=== PATIENT | female | born 1935 | race Caucasian/White ===

== ENCOUNTER 2019-04-03 07:43 | Emergency (ER) | payer MEDICARE, OTHER ==
[~2019-04-03] VITALS: Ht 160 cm; Wt 53.5 kg
[~2019-04-03 07:43] MED LIST: BECL40OI INH; CALGLU500 PO; CLOT10 MT; Calan Sr180 MG PO; ERGO400 PO; LEVFLO500 PO; LEVOFLOXAC750 MG/150 IV; METO5A PO; MULVITMINF PO; PRED1 PO; THYR60 PO; TRIAOI IH; VERA180ER PO; VERA80 PO
[2019-04-03] MEDS ORDERED: PRED1 PO (07:54)
[2019-04-03 09:03] LABS: Source, Urine Clean Catch
[2019-04-03 09:12] LABS: Bilirubin, Urine Neg (Neg); Blood, Urine 2+ (Neg); Glucose Qualitative, Urine Neg (Neg); Ketones, Urine Neg (Neg); Leukocyte Esterase, Urine 1+ (Neg); Nitrite, Urine Neg (Neg); Protein, Urine Neg (Neg); Urobilinogen, Urine NORM (Normal)
[2019-04-03 09:18] LABS: Appearance, Urine Clear (Clear); Color, Urine Yellow (P-Yellow)
[2019-04-03 09:20] LABS: Bacteria Rare /hpf; Red Blood Cells, Urine 0-2 /hpf (0-2); Squamous Epithelial Cells Rare /hpf (Few); White Blood Cells, Urine 0-2 /hpf (0-5)
[2019-04-03 09:31] LABS: BASOPHILS ABSOLUTE AUTO 0.07 K/mm3 (0.00-0.23); BASOPHILS PERCENT AUTO 1 % (0-2); EOSINOPHILS ABSOLUTE AUTO 0.06 K/mm3 (0.00-0.68); EOSINOPHILS PERCENT AUTO 1 % (0-6); Hematocrit 48.7 % (33.0-51.0); Hemoglobin 15.9 g/dL (11.5-16.0); IMMATURE GRAN ABSOLUTE AUTO 0.05 K/mm3 (0.00-0.10); IMMATURE GRAN PERCENT AUTO 1 % (0-1); LYMPHOCYTES PERCENT AUTO 7 % (21-46); MONOCYTES ABSOLUTE AUTO 0.51 K/mm3 (0.16-1.47); MONOCYTES PERCENT AUTO 5 % (4-13); Mean Corpuscular HGB 30.2 pg (26.0-34.0); Mean Corpuscular HGB Conc 32.6 g/dL (31.5-36.5); Mean Corpuscular Volume 92 fL (80-100); Mean Platelet Volume 10.7 fL (9.1-12.4); NEUTROPHILS ABSOLUTE AUTO 8.01 K/mm3 (1.96-9.15); NEUTROPHILS PERCENT AUTO 85 % (41-73); Platelet Count 244 K/mm3 (150-400); RDW Coefficient Variation 12.2 % (11.7-14.2); RDW Standard Deviation 41.5 fL (35.1-46.3); Red Blood Cell Count 5.27 M/mm3 (3.80-5.20)
[2019-04-03 09:50] LABS: Alanine Aminotransfer (ALT/SGP 23 U/L (12-78); Albumin, Blood 4.3 g/dL (3.4-5.0); Albumin/Globulin Ratio 1.3 (0.8-1.8); Alk Phos 82 U/L (50-136); Anion Gap 5 mmol/L (6-16); Aspartate Aminotrans (AST/SGOT 18 U/L (12-37); Bilirubin, Total 0.8 mg/dL (0.1-1.0); Blood Urea Nitrogen 12 mg/dL (8-24); Bun/Creatinine Ratio 17.2 (12.0-20.0); CO2, Blood 31 mmol/L (21-32); Calcium, Blood 9.4 mg/dL (8.5-10.1); Chloride, Blood 106 mmol/L (98-108); Globulin, Blood 3.4 g/dL (2.2-4.0); Glomerular Filtration Rate >60 (60-); Glucose, Blood 100 mg/dL (70-99); Potassium, Blood 3.9 mmol/L (3.5-5.5); Sodium, Blood 142 mmol/L (136-145); Total Protein, Blood 7.7 g/dL (6.4-8.2)
[2019-04-04] MEDS ORDERED: FLUC150A PO (08:05)
== END 2019-04-03 11:05 | disposition home or self-care (01) ==
LOC: ER 07:43
PROVIDERS: Physician Assistant
DX: K57.30 Diverticulosis of large intestine without perforation or abscess without bleeding (principal); M46.1 Sacroiliitis, not elsewhere classified; R59.0 Localized enlarged lymph nodes; E03.9 Hypothyroidism, unspecified; J45.909 Unspecified asthma, uncomplicated; I47.1 Supraventricular tachycardia
CPT/HCPCS: 36415; 51701; 74176; 80053; 81001; 83690; 85025; 87086; 99284-25

== ENCOUNTER 2019-04-04 07:20 | Emergency (ER) | payer MEDICARE, OTHER ==
[~2019-04-04] VITALS: Ht 160 cm; Wt 53.5 kg
[2019-04-04] MEDS ORDERED: FLUC150A PO (08:05)
== END 2019-04-04 08:05 | disposition home or self-care (01) ==
LOC: ER 07:20
DX: B37.2 Candidiasis of skin and nail (principal); J45.909 Unspecified asthma, uncomplicated; E03.9 Hypothyroidism, unspecified; I47.1 Supraventricular tachycardia; Z88.0 Allergy status to penicillin; Z88.2 Allergy status to sulfonamides; Z88.1 Allergy status to other antibiotic agents; Z88.5 Allergy status to narcotic agent; Z88.8 Allergy status to other drugs, medicaments and biological substances; Z79.899 Other long term (current) drug therapy
CPT/HCPCS: 99282

== ENCOUNTER 2021-04-27 19:03 | Emergency (ER) | payer MEDICARE ==
[~2021-04-27] VITALS: Ht 157.5 cm; Wt 51.3 kg
[~2021-04-27 19:03] MED LIST changes: +FLUC150A PO
[2021-04-27 19:38] LABS: BASOPHILS ABSOLUTE AUTO 0.06 K/mm3 (0.00-0.23); BASOPHILS PERCENT AUTO 1 % (0-2); EOSINOPHILS ABSOLUTE AUTO 0.19 K/mm3 (0.00-0.68); EOSINOPHILS PERCENT AUTO 2 % (0-6); Hematocrit 43.1 % (33.0-51.0); Hemoglobin 14.4 g/dL (11.5-16.0); IMMATURE GRAN ABSOLUTE AUTO 0.04 K/mm3 (0.00-0.10); IMMATURE GRAN PERCENT AUTO 0 % (0-1); LYMPHOCYTES ABSOLUTE AUTO 1.82 K/mm3 (0.84-5.20); LYMPHOCYTES PERCENT AUTO 19 % (21-46); MONOCYTES ABSOLUTE AUTO 0.96 K/mm3 (0.16-1.47); MONOCYTES PERCENT AUTO 10 % (4-13); Mean Corpuscular HGB 30.8 pg (26.0-34.0); Mean Corpuscular HGB Conc 33.4 g/dL (31.5-36.5); Mean Corpuscular Volume 92 fL (80-100); Mean Platelet Volume 10.8 fL (9.1-12.4); NEUTROPHILS ABSOLUTE AUTO 6.32 K/mm3 (1.96-9.15); NEUTROPHILS PERCENT AUTO 67 % (41-73); Platelet Count 277 K/mm3 (150-400); RDW Coefficient Variation 12.3 % (11.7-14.2); Red Blood Cell Count 4.68 M/mm3 (3.80-5.20); White Blood Cell Count 9.39 K/mm3 (4.00-11.30)
[2021-04-27 20:01] LABS: Alanine Aminotransfer (ALT/SGP 24 U/L (12-78); Albumin, Blood 3.9 g/dL (3.4-5.0); Albumin/Globulin Ratio 1.4 (0.8-1.8); Alk Phos 82 U/L (50-136); Anion Gap 5 mmol/L (6-16); Aspartate Aminotrans (AST/SGOT 17 U/L (12-37); Bilirubin, Total 0.3 mg/dL (0.1-1.0); Blood Urea Nitrogen 15 mg/dL (8-24); CO2, Blood 29 mmol/L (21-32); Calcium, Blood 8.6 mg/dL (8.5-10.1); Chloride, Blood 104 mmol/L (98-108); Creatinine, Blood 0.88 mg/dL (0.40-1.00); Globulin, Blood 2.8 g/dL (2.2-4.0); Glomerular Filtration Rate >60 (60-); Glucose, Blood 113 mg/dL (70-99); Potassium, Blood 4.2 mmol/L (3.5-5.5); Sodium, Blood 138 mmol/L (136-145); Total Protein, Blood 6.7 g/dL (6.4-8.2); Troponin I <0.015 ng/mL (0.000-0.040)
== END 2021-04-27 22:22 | disposition home or self-care (01) ==
LOC: ER 19:03
PROVIDERS: Student in an Organized Health Care Education/Training Program
DX: I48.91 Unspecified atrial fibrillation (principal); J45.909 Unspecified asthma, uncomplicated; E03.9 Hypothyroidism, unspecified; Z88.0 Allergy status to penicillin; Z88.8 Allergy status to other drugs, medicaments and biological substances; Z88.2 Allergy status to sulfonamides; Z88.6 Allergy status to analgesic agent; Z88.1 Allergy status to other antibiotic agents; Z88.5 Allergy status to narcotic agent; Z79.899 Other long term (current) drug therapy
CPT/HCPCS: 71045; 80053; 83880; 84484; 85025; 93005; 93010; 96374; 99285-25

== ENCOUNTER 2023-06-11 19:22 | Emergency (ER) | payer MEDICARE ==
[~2023-06-11] VITALS: Ht 157.5 cm; Wt 46.3 kg
[2023-06-11 19:32] VITALS: BP 166/70
== END 2023-06-11 20:40 | disposition home or self-care (01) ==
LOC: ER 19:22
DX: U07.1 COVID-19 (principal); J02.9 Acute pharyngitis, unspecified; J45.909 Unspecified asthma, uncomplicated; E03.9 Hypothyroidism, unspecified; I47.10 Supraventricular tachycardia, unspecified; Z79.899 Other long term (current) drug therapy; Z88.8 Allergy status to other drugs, medicaments and biological substances; Z88.0 Allergy status to penicillin; Z88.2 Allergy status to sulfonamides; Z88.1 Allergy status to other antibiotic agents; Z88.5 Allergy status to narcotic agent
CPT/HCPCS: 87081; 87430; 99283

== ENCOUNTER 2023-09-09 15:21 | Observation (INO) | payer MEDICARE ==
[~2023-09-09] VITALS: Ht 160 cm; Wt 46.4 kg
[2023-09-09 16:23] LABS: BASOPHILS PERCENT AUTO 1 % (0-2); EOSINOPHILS ABSOLUTE AUTO 0.12 K/mm3 (0.00-0.68); EOSINOPHILS PERCENT AUTO 1 % (0-6); Hematocrit 48.3 % (33.0-51.0); Hemoglobin 16.2 g/dL (11.5-16.0); IMMATURE GRAN ABSOLUTE AUTO 0.04 K/mm3 (0.00-0.10); IMMATURE GRAN PERCENT AUTO 0 % (0-1); LYMPHOCYTES ABSOLUTE AUTO 1.01 K/mm3 (0.84-5.20); LYMPHOCYTES PERCENT AUTO 11 % (21-46); MONOCYTES ABSOLUTE AUTO 0.75 K/mm3 (0.16-1.47); MONOCYTES PERCENT AUTO 8 % (4-13); Mean Corpuscular HGB Conc 33.5 g/dL (31.5-36.5); Mean Corpuscular Volume 93 fL (80-100); Mean Platelet Volume 10.2 fL (9.1-12.4); NEUTROPHILS ABSOLUTE AUTO 6.97 K/mm3 (1.96-9.15); NEUTROPHILS PERCENT AUTO 78 % (41-73); Platelet Count 233 K/mm3 (150-400); RDW Coefficient Variation 12.1 % (11.7-14.2); RDW Standard Deviation 41.6 fL (35.1-46.3); Red Blood Cell Count 5.22 M/mm3 (3.80-5.20); White Blood Cell Count 8.99 K/mm3 (4.00-11.30)
[2023-09-09 17:40] LABS: Albumin/Globulin Ratio 1.4 (0.8-1.8); Bilirubin, Total 0.3 mg/dL (0.1-1.0); Bun/Creatinine Ratio 27.7 (12.0-20.0); Calcium, Blood 9.4 mg/dL (8.5-10.1); Creatinine, Blood 0.69 mg/dL (0.40-1.00); Globulin, Blood 2.9 g/dL (2.2-4.0); Potassium, Blood 4.4 mmol/L (3.5-5.5); Total Protein, Blood 6.9 g/dL (6.4-8.2)
[2023-09-09] MEDS ORDERED: METO25 PO (19:27)
[2023-09-09 20:52] LABS: Magnesium, Blood 2.1 mg/dL (1.6-2.4)
[2023-09-10 05:05] LABS: BASOPHILS ABSOLUTE AUTO 0.08 K/mm3 (0.00-0.23); BASOPHILS PERCENT AUTO 1 % (0-2); EOSINOPHILS ABSOLUTE AUTO 0.11 K/mm3 (0.00-0.68); EOSINOPHILS PERCENT AUTO 1 % (0-6); Hematocrit 39.7 % (33.0-51.0); Hemoglobin 13.2 g/dL (11.5-16.0); IMMATURE GRAN ABSOLUTE AUTO 0.03 K/mm3 (0.00-0.10); IMMATURE GRAN PERCENT AUTO 0 % (0-1); LYMPHOCYTES ABSOLUTE AUTO 1.27 K/mm3 (0.84-5.20); LYMPHOCYTES PERCENT AUTO 14 % (21-46); MONOCYTES ABSOLUTE AUTO 0.89 K/mm3 (0.16-1.47); MONOCYTES PERCENT AUTO 10 % (4-13); Mean Corpuscular HGB 31.1 pg (26.0-34.0); Mean Corpuscular HGB Conc 33.2 g/dL (31.5-36.5); Mean Corpuscular Volume 93 fL (80-100); Mean Platelet Volume 10.4 fL (9.1-12.4); NEUTROPHILS ABSOLUTE AUTO 6.89 K/mm3 (1.96-9.15); NEUTROPHILS PERCENT AUTO 74 % (41-73); Platelet Count 191 K/mm3 (150-400); RDW Coefficient Variation 12.2 % (11.7-14.2); Red Blood Cell Count 4.25 M/mm3 (3.80-5.20); White Blood Cell Count 9.27 K/mm3 (4.00-11.30)
[2023-09-10 06:40] LABS: Albumin, Blood 3.3 g/dL (3.4-5.0); Albumin/Globulin Ratio 1.2 (0.8-1.8); Bilirubin, Total 0.7 mg/dL (0.1-1.0); Calcium, Blood 8.8 mg/dL (8.5-10.1); Creatinine, Blood 0.74 mg/dL (0.40-1.00); Globulin, Blood 2.7 g/dL (2.2-4.0); Magnesium, Blood 2.2 mg/dL (1.6-2.4); Potassium, Blood 4.3 mmol/L (3.5-5.5); Thyroid Stimulating Hormone 2.31 uIU/mL (0.360-4.800)
[2023-09-10 07:43] VITALS: BP 150/86
--- NOTE | 2023-09-10 08:03 | NUR ---
PATIENT ARRIVED FROM ER TODAY. PATIENT IS A&OX4. SBP IS SLIGHTLY ELEVATED BUT OTHERWISE VS ARE WNL. PATIENT DENIES CHEST PAIN, PALPITATIONS, OR LIGHTHEADEDNESS. PATIENT WAS ABLE TO STAND AND TRANSFER INDEP. FROM THE [facility] TO BED. PATIENT STATES "I'M PEEING AND HAD A BM THIS MORNING". SHE IS TOLERATING PO INTAKE WELL. SHE IS CURRENTLY LAYING IN BED WITH CALL LIGHT IN REACH. PATIENT WILL BE PLACED ON TELE ONCE MONITOR COMES FROM [employer].
--- NOTE | 2023-09-10 08:39 | NUR ---
TELE MONITOR HAS BEEN PLACED ON PATIENT. SAILING INSTRUCTOR ANDREA REPORTS PATIENT IS IN AFIB @ 98 BPM AT THIS TIME. THIS NURSE WENT INTO THE ROOM TO EDUCATED PATIENT ON THE 5MG PO ELIQUIS AND THAT IS A STANDARD DOSE TO GIVE PATIENTS WITH A HX OF AFIB AND HELPS PREVENT BLOOD CLOTS. AFTER EDUCATION PATIENT STATED "MY TAKES THE SAME MEDICATION AND HE WEIGHS ABOUT THE SAME ME AND HE ONLY TAKES 2.5 MG OF ELIQUIS TWICE A DAY. I WANT TO EASE INTO THIS NEW MEDICATION SO I WON'T BE TAKING THAT THIS MORNING." PATIENT IS LAYING IN BED TOLERATING HER BREAKFAST WITH CALL LIGHT IN REACH.
[2023-09-10 10:45] VITALS: BP 133/71
[2023-09-10 14:44] VITALS: BP 121/78
--- NOTE | 2023-09-10 16:00 | NUR ---
SHIFT SUMMARY: AFIB WITH RVR PATIENT IS A&OX4. VS ARE WNL AND IS ON RA WITH >90% OXYGEN SATS. PATIENT WAS GIVEN HER NEW DOSAGE OF PO TOPROLOL THIS MORNING PER EMAR. PER BREAKER HAND PATIENTS HR DID BUMP UP TO 140 BPM WHEN AMBULATING TO THE BATHROOM, BUT ONCE PATIENT SAT DOWN HER HR WENT BACK DOWN TO 80-90'S BPM. BREAKER HAND HAS SO FAR THIS SHIFT CALLED ONE TIME TO NOTIFY THIS NURSE OF THE PATIENTS HR GOING UP TO 140 BPM. PATIENT IS INDEP. IN THE ROOM. SHE IS TOLERATING PO INTAKE AND IS VOIDING. PATIENT REPORTS HAVING A BM EARLIER THIS MORNING BEFORE COMING INTO THE HOSPITAL. THIS NURSE CALLED DR. AGARWAL PER PATIENT REQUEST TO HAVING HER ELIQUIS DOSED TO 2.5 MG INSTEAD OF THE 5MG. PATIENT STATES "MY IS ON THE SAME MEDICATION AND WEIGHS ABOUT THE SAME ME, SO WHY CAN'T I? I ALSO WANT TO START OUT SLOW WITH A NEW MEDICATION LIKE THIS INSTEAD OF STARTING WITH A DOSAGE THAT IS SO HIGH". THIS NURSE EDUCATED PATIENT THAT THIS IS STILL A STANDARD DOSE TO BE GIVEN PER HER HX, AND WEIGHT IS NOT THE ONLY FACTOR TO CONSIDER WHEN DOING ELIQUIS DOSAGING. PATIENT AFTER EDUCATION WAS GIVEN STILL CONTINUED TO ASK FOR HER ELIQUIS DOSAGE TO BE ADJUSTED TO 2.5MG INSTEAD OF THE 5MG. DR. AGARWAL STATED TO CHART PER PATIENT REQUEST HAVING THE ELIQUIS DOSAGE CUT IN HALF IF THAT IS WHAT THE PATIENT IS WANTING. DR. AGARWAL STATED THAT SHE WOULD NOT CHANGE THE ORDER DUE TO THE PROTOCOL AND SHE SHOULD BE TAKING THE 5MG INSTEAD PER HER HX AND LABS. PATIENT HAS BEEN NOTIFIED OF THE UPDATE AND HAS NO FURTHER QUESTIONS AT THIS TIME. PATIENT IS CURRENTLY LAYING IN BED WITH CALL LIGHT IN REACH. PATIENT CALLS APPROPRIATELY.
[2023-09-10 19:42] VITALS: BP 118/82
[2023-09-11 03:45] VITALS: BP 155/82
--- NOTE | 2023-09-11 03:59 | NUR ---
SHIFT SUMMARY VSS. TELE READS AFIB 70-80'S WHEN AT REST. HR NOTED TO ELEVATE TO 140-150'S W/AMBULATION. HR QUICKLY RETURNS TO 80'S SOON AT THE PATIENT SITS DOWN. PT HAS DENIED ANY DIZZINESS, PALPITATIONS, CP, OR PRESSURE T/O THE NIGHT. HAS NOT REQUIRED ANY PRN DOSING OF LOPRESSOR. AWAITING RESULTS FROM ECHO. UNABLE TO ACCURATELY MEASURE I/O DUE TO PT REFUSING OUTPUT MEASUREMENT AND TRACKING INTAKE. AT THE BEGINNIG OF SHIFT, PT WAS AGITATED. UNWILLING TO TALK ABOUT MEDICATION COMPLIANCE/IMPORTANCE OR ENDORSE WHY SHE DOES NOT FEEL LIKE SHE SHOULD BE TAKING HER METOPROLOL OR ELIQUIS. THEN I ATTEMPTED TO EDUCATE PT ABOUT AFIB AND THE RISKS THIS DX HAS, PT STATED SHE WOULD NOT TALK TO ME ABOUT THIS TOPIC. PT ALSO UNWILLING TO ALLOW VOIDED AMOUNT TO BE MEASURED, STATED IT WAS "NONE OF YOUR BUISNESS". AGAIN, ATTEMPTED TO EDUCATE ABOUT THE RELEVENCE OF THIS AND THE PATIENT WAS UNINTERESTED IN PARTICIPATING. T/O THE NIGHT WHILE INTERACTING WITH THE PT, IT IS NOTED THAT WHILE SHE CAN ANSWER QUESTIONS ABOUT WHAT SHE IS CURRENTLY FEELING OR THINKING (ALONG W/ORIENTATION QUESTIONS), PT APPEARS TO STRUGGLE TO RECALL WHAT HAS HAPPENED RECENTLY. PT NOTED TO FLIP THROUGH AND READ OFF NOTES SHE HAS TAKEN WHEN ANSWERING MOST QUESTIONS. EASILY BECOMING FLUSTERED AND BEGINS TO ESCALATE. AT ONE POINT PT BECAME TEARFUL AND RAISED HER VOICE WHEN UNABLE TO FIGURE OUT HOW TO RAISE THE HEAD OF THE BED.
[2023-09-11 06:34] LABS: Hemoglobin 15.3 g/dL (11.5-16.0)
[2023-09-11 06:53] LABS: Bun/Creatinine Ratio 24.2 (12.0-20.0); Calcium, Blood 8.9 mg/dL (8.5-10.1); Creatinine, Blood 0.79 mg/dL (0.40-1.00)
[2023-09-11 07:25] VITALS: BP 138/91
--- NOTE | 2023-09-11 09:00 | NUR ---
PT PLEASANT MOSTLY COMPLIANT. VERY ANX ABOUT MEDS AND IF WILL NEED TO COME BACK TO HOSP. ARGUED BUT AGREED TO TAKE MEDS THIS AM. DENIES PAIN THIS MORNING. A/O X3, BUT VERY ANX. H/R IRREG, NO MURMUR NOTED. PER TELE AFIB AT 88, WITH INCREASE TO 150'S UPON AMBULATION. LUNGS CLEAR, RESP EASY, UNLABORED. ON R.A. BT X4 LAST BM X3 YEST. STATES HAS IBS. REF COLACE. NOTICABLE CURVATURE IN BACK. VOIDS INDEPENDANT TO BATHROOM. BED IN LOW POSITION, CALL LITE IN REACH, CALLS APROP
--- NOTE | 2023-09-11 12:08 | NUR ---
SPOKE TO DR AGARWAL IN [facility]. UPDATED H/R P;ER TELE. CONTINUES AFIB 88-1TEENS, JUMPS TO 150 WHEN UP WALKING.
[2023-09-11 16:14] VITALS: BP 144/92
--- NOTE | 2023-09-11 17:22 | NUR ---
PT PLEASANT BUT ANXIOUS TODAY. H/R VARIES 88 AT REST, AND UP TO 150 WHEN UP. OR WHEN GETS EXCITED. CONTINUES TO BE FIXATED ON MEDS AND PLAN. VERIFIED WITH HER NEEDED. SHE STATES THINKS TOOK 25 MG TOPROL TODAY, BUT THIS WAS APPARENTLY A PRIOR DOSE. 50 MG WAS ORDERED THIS AM, SCANNED AND ADMIN. SHE IS UP AMBULATING HALLS. DR STATES IS LIKELY INCREASING DOSE TOMORROW. NO OTHER CONCERNS NOTED. CONTINUES IN AFIB. BED IN LOW POSITION, CALL LITE IN REACH, CALLS APPROP
[2023-09-11 19:25] VITALS: BP 137/82
[2023-09-12 03:23] VITALS: BP 139/85
--- NOTE | 2023-09-12 05:25 | NUR ---
SHIFT SUMMARY VSS, TELE HAS READ AFIB 70-80'S T/O THE NIGHT. TELE REPORTED THAT HR DROPPED INTO THE HIGH 60'S TWICE T/O THE NIGHT, BOTH TIMES THE PT WAS SLEEPING SOUNDLY. PT AMBULATING IN ROOM INDEPENDENTLY T/O THE NIGHT, VOIDING W/O DIFFICULTY. DIFFICULT TO TRACK PO INTAKE D/T PT FILLING CUP UP IN THE SINK PRN. TOLLERATING PO INTAKE W/O N/V. PT REPORTED R HIP CRAMPING, K PAD GIVEN. PTS MOOD AND ANXIETY NOTED TO BE MUCH IMPROVED COMPARED TO PREVIOUS NIGHTS ASSESSMENT. NO ACUTE EVENTS NOTED. PLAN FOR S/C TODAY IF MEDICALLY CLEARED.
[2023-09-12 07:40] VITALS: BP 120/80
[2023-09-12] MEDS ORDERED: ELIQUIS5 M2 PO (12:05)
[2023-09-12] MEDS ORDERED: DOCU100 PO (12:05)
[2023-09-12] MEDS ORDERED: METO50ER (13:10)
--- NOTE | 2023-09-12 13:25 | NUR ---
DC SUMMARY PT A/O X3 AND IRRITABLE AT TIMES. PLEASANT FOR THE MAJORITY OF THE DAY. VSS. DC'D HOME AND DROVE HERSELF HOME.
== END 2023-09-12 15:31 | disposition home or self-care (01) ==
LOC: ER 15:21 → ERHOLD 15:22 → SURS 09-10 07:42
PROVIDERS: Internal Medicine; Physician Assistant; ADMIT Student in an Organized Health Care Education/Training Program
DX: I48.91 Unspecified atrial fibrillation (principal); J45.909 Unspecified asthma, uncomplicated; E03.9 Hypothyroidism, unspecified; Z66 Do not resuscitate; Z88.8 Allergy status to other drugs, medicaments and biological substances; Z88.0 Allergy status to penicillin; Z88.6 Allergy status to analgesic agent; Z91.011 Allergy to milk products; Z91.048 Other nonmedicinal substance allergy status; Z88.5 Allergy status to narcotic agent; Z88.1 Allergy status to other antibiotic agents
CPT/HCPCS: 36415; 80048; 80053; 83735; 84443; 84484; 85014; 85018; 85025; 93005; 93010; 93306; 96374; 99285-25; A9270; G0378; J7030

== ENCOUNTER 2023-09-14 18:20 | Emergency (ER) | payer MEDICARE ==
[~2023-09-14] VITALS: Ht 157.5 cm; Wt 45.4 kg
[~2023-09-14 18:20] MED LIST changes: +DOCU100 PO; +ELIQUIS5 M2 PO; +METO25 PO; +METO50ER
[2023-09-14 18:53] LABS: BASOPHILS PERCENT AUTO 1 % (0-2); EOSINOPHILS ABSOLUTE AUTO 0.16 K/mm3 (0.00-0.68); EOSINOPHILS PERCENT AUTO 2 % (0-6); Hematocrit 45.8 % (33.0-51.0); Hemoglobin 15.1 g/dL (11.5-16.0); IMMATURE GRAN ABSOLUTE AUTO 0.03 K/mm3 (0.00-0.10); IMMATURE GRAN PERCENT AUTO 0 % (0-1); LYMPHOCYTES ABSOLUTE AUTO 1.34 K/mm3 (0.84-5.20); LYMPHOCYTES PERCENT AUTO 19 % (21-46); MONOCYTES ABSOLUTE AUTO 0.77 K/mm3 (0.16-1.47); MONOCYTES PERCENT AUTO 11 % (4-13); Mean Corpuscular HGB 30.8 pg (26.0-34.0); Mean Corpuscular Volume 93 fL (80-100); Mean Platelet Volume 10.4 fL (9.1-12.4); NEUTROPHILS ABSOLUTE AUTO 4.71 K/mm3 (1.96-9.15); NEUTROPHILS PERCENT AUTO 66 % (41-73); NRBC ABSOLUTE 0.02 K/mm3 (0.00-0.02); NRBC Auto 0.3 /100 WBC (0.0-0.2); Platelet Count 245 K/mm3 (150-400); RDW Coefficient Variation 12.1 % (11.7-14.2); RDW Standard Deviation 41.9 fL (35.1-46.3); Red Blood Cell Count 4.91 M/mm3 (3.80-5.20); White Blood Cell Count 7.11 K/mm3 (4.00-11.30)
[2023-09-14 19:20] LABS: Albumin, Blood 3.9 g/dL (3.4-5.0); Albumin/Globulin Ratio 1.3 (0.8-1.8); Bilirubin, Total 0.3 mg/dL (0.1-1.0); Bun/Creatinine Ratio 29.3 (12.0-20.0); Calcium, Blood 9.3 mg/dL (8.5-10.1); Creatinine, Blood 0.85 mg/dL (0.40-1.00); Potassium, Blood 4.2 mmol/L (3.5-5.5); Total Protein, Blood 6.9 g/dL (6.4-8.2)
[2023-09-14 20:00] VITALS: BP 139/80
== END 2023-09-14 20:23 | disposition home or self-care (01) ==
LOC: ER 18:20
PROVIDERS: Emergency Medicine
DX: Z00.00 Encounter for general adult medical examination without abnormal findings (principal); J45.909 Unspecified asthma, uncomplicated; I48.91 Unspecified atrial fibrillation; E03.9 Hypothyroidism, unspecified; Z79.01 Long term (current) use of anticoagulants; Z79.899 Other long term (current) drug therapy; Z88.0 Allergy status to penicillin; Z88.1 Allergy status to other antibiotic agents; Z88.2 Allergy status to sulfonamides; Z88.5 Allergy status to narcotic agent; Z88.6 Allergy status to analgesic agent; Z88.8 Allergy status to other drugs, medicaments and biological substances; Z88.7 Allergy status to serum and vaccine; Z91.018 Allergy to other foods; Z88.4 Allergy status to anesthetic agent
CPT/HCPCS: 71046; 80053; 85025; 93005; 93010; 99284-25

== ENCOUNTER 2025-01-06 01:34 | Observation (INO) | payer MEDICARE ==
[~2025-01-06] VITALS: Ht 162.6 cm; Wt 43.7 kg
[2025-01-06] VITALS (7 sets, daily range): BP systolic 101–141; BP diastolic 75–102
[~2025-01-06 01:34] MED LIST changes: -METO50ER; +METO50ER PO
[2025-01-06 02:23] LABS: Albumin, Blood 3.6 g/dL (3.4-5.0); Albumin/Globulin Ratio 1.2 (0.8-1.8); Bilirubin, Total 0.6 mg/dL (0.1-1.0); Bun/Creatinine Ratio 16.2 (12.0-20.0); Calcium, Blood 8.7 mg/dL (8.5-10.1); Creatinine, Blood 0.86 mg/dL (0.40-1.00); Globulin, Blood 3.1 g/dL (2.2-4.0); Potassium, Blood 4.3 mmol/L (3.5-5.5); Total Protein, Blood 6.7 g/dL (6.4-8.2)
[2025-01-06 02:24] LABS: BASOPHILS ABSOLUTE AUTO 0.04 K/mm3 (0.00-0.23); BASOPHILS PERCENT AUTO 1 % (0-2); EOSINOPHILS PERCENT AUTO 0 % (0-6); Hematocrit 46.1 % (33.0-51.0); Hemoglobin 15.6 g/dL (11.5-16.0); IMMATURE GRAN ABSOLUTE AUTO 0.04 K/mm3 (0.00-0.10); IMMATURE GRAN PERCENT AUTO 1 % (0-1); LYMPHOCYTES ABSOLUTE AUTO 0.86 K/mm3 (0.84-5.20); LYMPHOCYTES PERCENT AUTO 14 % (21-46); MONOCYTES ABSOLUTE AUTO 0.92 K/mm3 (0.16-1.47); MONOCYTES PERCENT AUTO 15 % (4-13); Mean Corpuscular HGB 30.5 pg (26.0-34.0); Mean Corpuscular HGB Conc 33.8 g/dL (31.5-36.5); Mean Corpuscular Volume 90 fL (80-100); Mean Platelet Volume 10.4 fL (9.1-12.4); NEUTROPHILS ABSOLUTE AUTO 4.22 K/mm3 (1.96-9.15); NEUTROPHILS PERCENT AUTO 69 % (41-73); Platelet Count 234 K/mm3 (150-400); RDW Standard Deviation 39.6 fL (35.1-46.3); Red Blood Cell Count 5.11 M/mm3 (3.80-5.20); White Blood Cell Count 6.08 K/mm3 (4.00-11.30)
[2025-01-06 03:21] LABS: Influenza A, PCR NEGATIVE (NEGATIVE); Influenza B, PCR NEGATIVE (NEGATIVE); Resp Syncytial Virus, PCR NEGATIVE (NEGATIVE); SARS-Cov-2 (COVID-19) PCR, MMC NEGATIVE (NEGATIVE)
[2025-01-06] MEDS ORDERED: Metoprolol Tartrate 1 MG/ML 5 ML VIAL IV PRN (03:50)
[2025-01-06] MEDS ORDERED: NS 1,000 ML IV ONE (04:07)
[2025-01-06] MEDS ORDERED: NS 250 ML IV ONE (04:25)
[2025-01-06] MEDS ORDERED: NS 250 ML IV SCH ×2 (04:25)
[2025-01-06] MEDS ORDERED: Ondansetron HCl 2 MG / ML 2ML Vial IV PRN ×3 (06:20→09:30)
[2025-01-06] MEDS ORDERED: Azithromycin 500 MG in NS 250 ML IV SCH (06:32)
[2025-01-06] MEDS ORDERED: MethylPREDNISolone Sod Succ 125 MG Vial IV SCH (07:00)
[2025-01-06] MEDS ORDERED: NS 250 ML IV PRN (08:40)
[2025-01-06] MEDS ORDERED: Metoprolol Succinate 50 MG TABCR PO SCH (09:00)
[2025-01-06] MEDS ORDERED: Apixaban 5 MG Tab PO SCH (09:00)
--- NOTE | 2025-01-06 17:36 | NUR ---
PT WAS VERY CHESTER ON NOT TAKING HER SCHEDULED MEDICATION AT 1800. PHARMACY AWARE AND COURT SPECIALIST WILL BE NOTIFIED TO GIVE HER ONLY 1800 MED AT NIGHTIME MED PASS
[2025-01-06] MEDS ORDERED: Metoprolol Succinate 25 MG TABCR PO SCH (18:00)
[2025-01-07 01:01] VITALS: BP 125/79
[2025-01-07 04:12] VITALS: BP 125/73
[2025-01-07 05:32] LABS: BASOPHILS ABSOLUTE AUTO 0.02 K/mm3 (0.00-0.23); BASOPHILS PERCENT AUTO 0 % (0-2); EOSINOPHILS ABSOLUTE AUTO 0.12 K/mm3 (0.00-0.68); EOSINOPHILS PERCENT AUTO 2 % (0-6); Hematocrit 43.1 % (33.0-51.0); Hemoglobin 14.6 g/dL (11.5-16.0); IMMATURE GRAN ABSOLUTE AUTO 0.03 K/mm3 (0.00-0.10); IMMATURE GRAN PERCENT AUTO 1 % (0-1); LYMPHOCYTES ABSOLUTE AUTO 1.24 K/mm3 (0.84-5.20); LYMPHOCYTES PERCENT AUTO 21 % (21-46); MONOCYTES ABSOLUTE AUTO 1.07 K/mm3 (0.16-1.47); MONOCYTES PERCENT AUTO 18 % (4-13); Mean Corpuscular HGB Conc 33.9 g/dL (31.5-36.5); Mean Corpuscular Volume 89 fL (80-100); Mean Platelet Volume 10.3 fL (9.1-12.4); NEUTROPHILS ABSOLUTE AUTO 3.47 K/mm3 (1.96-9.15); NEUTROPHILS PERCENT AUTO 58 % (41-73); Platelet Count 211 K/mm3 (150-400); RDW Standard Deviation 39.2 fL (35.1-46.3); Red Blood Cell Count 4.86 M/mm3 (3.80-5.20); White Blood Cell Count 5.95 K/mm3 (4.00-11.30)
[2025-01-07 06:11] LABS: Albumin, Blood 3.2 g/dL (3.4-5.0); Albumin/Globulin Ratio 1.1 (0.8-1.8); Bilirubin, Total 0.5 mg/dL (0.1-1.0); Bun/Creatinine Ratio 23.9 (12.0-20.0); Calcium, Blood 8.6 mg/dL (8.5-10.1); Creatinine, Blood 0.71 mg/dL (0.40-1.00); Globulin, Blood 2.8 g/dL (2.2-4.0)
--- NOTE | 2025-01-07 06:49 | NUR ---
HOSPITAL INTERN SUMMARY PT A/OX4. NO ACUTE CHANGES. PT VERY ANXIOUS REGARDING HER CURRENT CONDITION AND MEDICATIONS SHE IS TAKING. PT STATES SHE FEELS SHE IS GETTING WORSE AND IS ADAMANT SHE IS NOT READY TO GO HOME. (PT STATES SHE DOES NOT HAVE TRANSPORTATION HOME AND WILL HAVE TO TAKE A TAXI--HER IS IN A CARE FACILITY; PT DOES NOT HAVE FAMILY IN [facility]). PT FEELS HER COUGH/RESPIRATORY IS GETTING WORSE. PT'S VITALS HAVE BEEN STABLE. OXYGEN IS ABOVE 90% ON ROOM AIR. LABS IMPROVED. PT STATES SHE WANTS A CHEST XRAY. THIS RN REMINDED PT SHE HAD AN XRAY YESTERDAY. UNSURE IF PT DOES NOT REMEMBER. PT REPORTS YESTDERDAY SHE HAD A REACTION TO MEDICATIONS GIVEN--SOLUMEDROL. ADVISED PT THIS MEDICATION HAS BEEN DISCONTINUED AND WILL NOT BE GIVEN AGAIN. MULTIPLE CONVERSATIONS WERE HAD ABOUT THIS TO ASSURE THE PT. PT IS ON TELE, AFLUTTER IN THE 90'S. PT DID HAVE A BRIEF TACHY RATE IN THE 140'S AFTER A COUGHING SPELL. SPUTUM CULTURE COLLECTED AND SENT TO LAB--PER LAB SPECIMINE WAS ADEQUATE. PT CALL LIGHT IS IN REACH. PT ABLE TO MAKE NEEDS KNOWN AND ADVOCATE FOR SELF. WILL CONTINUE TO MONITOR UNTIL REPORT GIVEN TO ONCOMING NURSE.
[2025-01-07 07:33] VITALS: BP 114/89
--- NOTE | 2025-01-07 07:41 | NUR ---
TELE CALLED REPORTING A 8 BEAT RUN OF SVT; PATIENT ASSESSED. PATIENT ALERT NO S/S.
[2025-01-07 11:15] VITALS: BP 119/77
== END 2025-01-07 14:18 | disposition home or self-care (01) ==
LOC: ER 01:34 → MEDS 01:35
PROVIDERS: Student in an Organized Health Care Education/Training Program; ADMIT Internal Medicine
DX: J20.8 Acute bronchitis due to other specified organisms (principal); R79.89 Other specified abnormal findings of blood chemistry; M79.89 Other specified soft tissue disorders; I48.20 Chronic atrial fibrillation, unspecified; E87.1 Hypo-osmolality and hyponatremia; J45.20 Mild intermittent asthma, uncomplicated; M71.22 Synovial cyst of popliteal space [Baker], left knee; I47.10 Supraventricular tachycardia, unspecified; Z79.01 Long term (current) use of anticoagulants; Z79.899 Other long term (current) drug therapy; Z88.0 Allergy status to penicillin; Z88.1 Allergy status to other antibiotic agents; Z88.2 Allergy status to sulfonamides; Z88.5 Allergy status to narcotic agent; Z88.6 Allergy status to analgesic agent; Z88.8 Allergy status to other drugs, medicaments and biological substances
CPT/HCPCS: 0241U; 36415; 71046; 80053; 83880; 84484; 85025; 87070; 87205; 93005; 93010; 93306; 93971; 94760; 96365; 96374; 96375; 96376; 97165; 97530; 97535; 99285-25; A9270; G0378; J0456; J2405; J2919; J7030; J7050